=== PATIENT | male | born 1960 | race Caucasian/White ===

== ENCOUNTER 2017-03-25 10:02 | Inpatient (IN) | payer OTHER ==
--- NOTE | 2017-03-09 00:36 | HP ---
HISTORY AND PHYSICAL: DATE OF SURGERY/ADMISSION: 03/25/17 ATTENDING SURGEON: Roderick Vaughan MD * (DICTATED BY KERRY LOVE) PROCEDURE: Revision of right knee arthroplasty. CHIEF COMPLAINT: Right knee pain, instability HISTORY OF PRESENT ILLNESS: The patient is a very pleasant [id number] who presents today for history and physical prior to undergoing a revision of his right knee arthroplasty. The patient states that since recovering from right knee replacement in June 2015, he notes that his knee adriana and gives out with sliding from front to back direction. He has had increased pain and has elected to undergo a revision of his right total knee arthroplasty to correct this. PAST MEDICAL HISTORY: 1. History of depression. 2. History of bradycardia. PAST SURGICAL HISTORY: 1. Right knee scope x2. 2. Tonsillectomy. 3. Right knee replacement in June 2015. MEDICATIONS: 1. SAMe 400 mg 1 tablet p.o. daily. 2. Advil p.r.n. FAMILY HISTORY: Positive for heart disease and diabetes. Negative for cancer. SOCIAL HISTORY: The patient is and resides in [place]. 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 He has never smoked and rarely uses alcohol and exercises regularly. REVIEW OF SYSTEMS: General: Negative for fevers, chills, night sweats. No difficulty with anesthesia. HEENT: Negative for headache, lightheadedness or syncopal episodes. Integument: Negative for abrasions, lesions, open wounds or sores. Cardiothoracic: Negative for chest pain or edema. Negative for hypertension. Positive for asymptomatic bradycardia. Pulmonary: Negative for shortness of breath with exertion, chronic cough or COPD. GI: Negative for nausea, vomiting, constipation diarrhea or GERD. : Negative for urinary frequency and urgency. No history of UTIs or kidney disease. Musculoskeletal: Positive for right knee pain. Negative for back pain. Neuro: Negative for paresthesias. Positive for numbness of the great toe. No history of seizure, stroke or epilepsy. Endocrine: Negative for diabetes. Negative for thyroid disease. Hematologic: Negative for easy bruising, bleeding, anemia. No history of DVT or PE. Infectious Disease: Negative for MRSA, hepatitis C or HIV. PHYSICAL EXAMINATION GENERAL: Well appearing, in no acute distress. Alert and oriented 56-year-old male appearing younger than stated age. VITAL SIGNS: Height 68 inches, weight 185 pounds. Pulse 89, blood pressure 128 /74, respirations 18, temperature 98.0. BMI 28.1. HEENT: Normocephalic, atraumatic. EOMI. CARDIAC: Regular rate and rhythm. No murmurs, gallops or rubs. Normal S1 and S2. PULMONARY: Lungs clear to auscultation bilaterally. No crackles, rhonchi or wheezes. ABDOMEN: Soft, nontender, nondistended. Negative CVA tenderness bilaterally. NEUROLOGIC: Alert and oriented x3. Cranial nerves grossly intact. Sensation is intact to light touch in bilateral lower extremities. MUSCULOSKELETAL: Right knee in brace. Range of motion 0 to 130 degrees without difficulty. Negative Homans sign bilaterally. Posterior tibial pulses 2+ bilaterally. Sensation intact to light touch bilaterally. Full strength with extension and flexion of bilateral knees in comparison to opposite side studies. DIAGNOSTIC STUDIES: The patient underwent a chest x-ray, which was negative for any acute disease. The patient underwent x-rays of the right knee in September, which showed anatomic alignment of the prosthetic components and no radiologic evidence for loosening or fracture. ASSESSMENT: Right total knee arthroplasty with instability. PLAN: The patient has elected to undergo revision of his right total knee due to instability and increased with movement. Dr. Vaughan has reviewed the procedure with the patient who has no other questions or concerns today. He is unsure of which pain medication had worked for him in the past. If he had a reaction to one, he will call the office with this information. He was advised that he will be taking Coumadin postoperatively for approximately 1 month timeframe and he will call with any questions or concerns that he has in the future. KERRY LOVE [id number]/[facility] #: [id number] DANA
[~2017-03-25 10:02] MED LIST: Buffered Lidocaine 0.9% SYRIN* 5 ML/SYR SYRINGE INTRADERM ONE; DiMENhydriNATE IV* 50 MG/ML VIAL IV PUSH PRN; Famotidine IV* 10 MG/ML 2 ML (20 mg) IV ONE; Morphine INJ* 2 MG/ML 1 ML CARPUJECT IV PRN; PROCHLORPERAZINE INJ 5 MG/ML 2 ML VIAL IV PRN; Scopolamine 1.5 mg* PATCH TRANSDERM PRN; fentaNYL* 50 MCG/ML 2 ML VIAL (100 MCG VIAL) IV PRN; oxyCODONE/Acetamin 5/325 MG* TAB PO PRN
[2017-03-25] MEDS ORDERED: Famotidine IV* 10 MG/ML 2 ML (20 mg) ONE (10:50)
[2017-03-25] MEDS ORDERED: Clindamycin 900 MG IVPREMIX(* 900 MG/50 ML SDV IV ONE (10:50)
[2017-03-25] MEDS ORDERED: Buffered Lidocaine 0.9% SYRIN* 5 ML/SYR SYRINGE ONE (10:50)
[2017-03-25] MEDS ORDERED: fentaNYL* 50 MCG/ML 2 ML VIAL (100 MCG VIAL) ONE (11:16)
[2017-03-25] MEDS ORDERED: Midazolam* 1 MG/ML 10 ML VIAL (10 MG) ONE (11:17)
[2017-03-25] MEDS ORDERED: KETAMINE HCL* 50 MG/ML 10 ML VIAL ONE (11:17)
[2017-03-25] MEDS ORDERED: ceFAZolin 2 GM PREMIX (*) 2 GM/50 ML BAG IVPB ONE (11:34)
[2017-03-25] MEDS ORDERED: Bupivacaine 0.5% SDV PF* 30 ML VIAL ONE (11:58)
[2017-03-25] MEDS ORDERED: diPHENhydraMINE IV* 50 MG/ML 1 ml VIAL (BENADRYL) IV PRN ×2 (13:08→14:54)
[2017-03-25] MEDS ORDERED: PROCHLORPERAZINE INJ 5 MG/ML 2 ML VIAL IV PRN ×2 (13:08→14:54)
[2017-03-25] MEDS ORDERED: Ondansetron INJ* 2 MG/ML VIAL IV PRN ×2 (13:08→14:54)
[2017-03-25] MEDS ORDERED: Naloxone* 2 MG in NS 0.9% 250 ML* 250 ML IV PRN ×2 (13:08→14:54)
[2017-03-25] MEDS ORDERED: Nalbuphine* 20 MG/ML 1 ML VIAL IV PRN ×2 (13:08→14:54)
[2017-03-25] MEDS ORDERED: DiMENhydriNATE IV* 50 MG/ML VIAL IV PUSH PRN ×2 (13:08→14:54)
[2017-03-25] MEDS ORDERED: Ropivacaine 0.2% EPIDURAL* 200 MG/100 ML BAG EPIDURAL ONE (13:28)
[2017-03-25] MEDS ORDERED: Morphine PF AMP (0.5MG/ML)* 5 MG/10 ML AMP ONE (14:51)
[2017-03-25] MEDS ORDERED: Scopolamine 1.5 mg* PATCH TRANSDERM PRN (14:54)
[2017-03-25] MEDS ORDERED: oxyCODONE/Acetamin 5/325 MG* TAB PO PRN (14:54)
[2017-03-25] MEDS ORDERED: Naloxone* 0.4 MG/ML 1 ML VIAL IV PRN (14:54)
[2017-03-25] MEDS ORDERED: Bisacodyl SUPP* 10 MG SUPP PR PRN (15:03)
[2017-03-25] MEDS ORDERED: Polyethylene Glycol 3350* 17 GM PACKET PO PRN (15:03)
[2017-03-25] MEDS ORDERED: ALPRAZolam TAB* 0.5 MG PO PRN (15:08)
--- NOTE | 2017-03-25 16:02 | RAD ---
INDICATION: Postoperative right knee arthroplasty COMPARISON: October 01, 2016 TECHNIQUE: AP and lateral views were obtained. FINDINGS: There is right knee arthroplasty with revision. The prosthetic components appear well seated there are anterior skin marylou. A cooling jacket is in place.. IMPRESSION: RIGHT KNEE ARTHROPLASTY WITH REVISION.
[2017-03-25] MEDS: Ropivacaine 0.2% EPIDURAL* 200 MG/100 ML BAG EPIDURAL SCH (16:36)
[2017-03-25] MEDS ORDERED: Warfarin TAB(*) 10 MG PO ONE (17:00)
[2017-03-25] MEDS: D5W 1/2 NS 1000 ML BAG* 1,000 ML IV SCH (17:26)
[2017-03-25] MEDS ORDERED: Scopolamine 1.5 mg* PATCH ONE (17:55)
[2017-03-25] MEDS ORDERED: Ondansetron INJ* 2 MG/ML VIAL ONE (17:55)
[2017-03-25] MEDS: Docusate CAP* 100 MG PO SCH (20:23)
[2017-03-25] MEDS: Ferrous Sulfate TAB* 325 MG PO SCH (20:23)
[2017-03-25] MEDS: Magnesium Hydroxide LIQ* 30 ML UDC PO SCH (20:23)
[2017-03-25] MEDS: ceFAZolin 1 GM VIAL(*) 1 GM in D5W 50 ML BAG* 50 ML IVPB SCH (20:33)
[2017-03-26] MEDS: D5W 1/2 NS 1000 ML BAG* 1,000 ML IV SCH (01:41)
[2017-03-26] MEDS: Ropivacaine 0.2% EPIDURAL* 200 MG/100 ML BAG EPIDURAL SCH (02:10)
--- NOTE | 2017-03-26 04:06 | OP ---
DATE OF OPERATION: 03/25/17 - ROOM #342 DATE OF : 56 SURGEON: Roderick Vaughan MD ASSISTANTS: 1. Corine Bruner RPA 2. Nataliya Daugherty RPA ANESTHESIOLOGIST: Usman Ram MD ANESTHESIA: Epidural and sedation. PRE-OP DIAGNOSIS: Unstable right total knee arthroplasty. POST-OP DIAGNOSIS: Unstable right total knee arthroplasty. OPERATIVE PROCEDURE: Revision, right total knee. INDICATIONS: Mr. Camp is a 56-year-old male, who approximately 9 months ago underwent a right total knee arthroplasty in [place]. He has had continued troubles with it with very specific instability. His surgeon had told him he did not have a PCL, but yet put in a PCL-sparing knee replacement. He had very clear anterior to posterior instability as well as varus valgus instability as well. I discussed with him that revising the femoral component and possibly the tibial component depending on the integrity of his collateral ligaments should work well to restore his stability and get him moving. Risks of surgery such as infection, scar formation, stiffness, DVT, pulmonary embolism, and the need for revision surgery were some of the risks discussed. He had been declared medically optimized and wished to proceed. ESTIMATED BLOOD LOSS: 100 cc. COMPLICATIONS: None. HARDWARE: [employer], #6 femur with 10-mm CPS poly. DESCRIPTION OF PROCEDURE: The patient was brought to the OR, and epidural anesthesia was established. Tourniquet was placed over the proximal right thigh and would be used during the case. Tourniquet time would be 72 minutes. Right knee was prepped and then Alex catheter was placed. Corine Bruner and Nataliya Daugherty were present from the beginning of the case through the end and without an child development assistant the case would not have been possible to complete. They were there from prep to positioning, to approach, to removal of the femur, to placement of the femur and then closure. Right knee was prepped and draped. Incision was made using the old scar and carried down through skin and subcutaneous scar. Eventually, I found the plane by the top side of his quadriceps and used this to make a medial full-thickness flap. Medial parapatellar arthrotomy was then made and knee joint was opened. New synovium was forming and a little bit of clear joint fluid was present. Synovium was taken down from edges of the metal prosthesis, so that I could access to the bone metal interface. Similarly, I did thin out a little bit of the infrapatellar fat pad. However, I was very careful with doing this, shaving of layer by layer of scar, so that I could get access to the front of the tibial component to remove the tibial polyethylene. Eventually, I was able to clear around the polyethylene and polyethylene was removed. This gave better access to the knee, as then I could get better access about the femur. A small osteotome was then used to make a little wedge between the bone and cement/ metal interface so that eventually I could place a Gigli saw. Thin flexible osteotomes had been placed through and around from both medial and lateral aspects of the anterior aspect of the femur as well as from the inner side of the femur as well. With having gotten most of these through, Gigli saw was then pulled all the way down and it could be seen where I came most of the way down and around, even the weightbearing surface of the femur. Prosthesis was then loosening and I continued to work with the thin osteotomes and eventually femur came off rather atraumatically. It could be seen where I had a thin layer of bone and cement on the prosthesis and most of the bone was still intact on the distal femur. I still had cortex on the medial and lateral sides , anterior cortex, and only lost a little bit of the cancellous bone centrally on each of the condyles. I thought it would be acceptable to make this up with cement rather than resect more bone and use an LCCK femur. #6 femur was placed and I tried him with a 10 polyethylene spacer. He came out nicely and it could be seen where his stability was instantly improved. We also had the CPS and I used the CPS polyethylene and this also worked quite well. After placing the femur, a notch cut was made and then he was trialed with the polyethylene. His stability was excellent. Knee was copiously pulse lavaged. Cement was being prepared. A #6 was then cemented into place ,and excess cement was removed. Once the cement had hardened, knee was searched for additional cement and a few small pieces were found. Polyethylene was then snapped into place. He had excellent motion and stability and I believe he will be tremendously pleased with how much better than he feels. Knee was again copiously pulse lavaged. Parapatellar arthrotomy was repaired using interrupted #1 Vicryl sutures. The tourniquet was led down once the polyethylene had been snapped in. Subcutaneous tissues were reapproximated using 2-0 Vicryl. Skin was closed using marylou. Sterile dressing and a Cryo/Cuff were applied in the OR. The patient was awake even during the operation as he wanted to see the knee prosthesis once it was placed into the knee, but because of contamination issues , this was not attempted. He was awake and stable on transfer to the recovery room. [id number]/[facility] #: [id number] MTDD
[2017-03-26] MEDS: ceFAZolin 1 GM VIAL(*) 1 GM in D5W 50 ML BAG* 50 ML IVPB SCH ×2 (04:24→14:58)
[2017-03-26] MEDS ORDERED: HYDROcodone/ACETAMIN 5-325 MG* 1 TAB PO PRN ×3 (04:55→08:07)
[2017-03-26 05:04] LABS: Hematocrit 38 % (42-52); Hemoglobin 12.7 g/dl (14.0-18.0)
[2017-03-26 05:19] LABS: BUN/Creatinine Ratio 17.5 (8-20); Calcium 8.5 mg/dL (8.6-10.3); EGFR African American 102.2 (>60); EGFR Non-African American 79.5 (>60); Potassium 4.2 mmol/L (3.5-5.0)
[2017-03-26] MEDS ORDERED: HYDROcodone/ACETAMIN 5-325 MG* 1 TAB ONE (05:52)
[2017-03-26] MEDS ORDERED: Morphine INJ* 4 MG/ML 1 ML CARPUJECT IV PRN ×2 (06:00→08:13)
[2017-03-26] MEDS ORDERED: Ondansetron INJ* 2 MG/ML VIAL IV PRN (06:54)
[2017-03-26] MEDS ORDERED: Ondansetron TAB* 4 MG PO PRN (06:54)
[2017-03-26] MEDS ORDERED: diPHENhydraMINE IV* 50 MG/ML 1 ml VIAL (BENADRYL) IV PRN (06:54)
[2017-03-26] MEDS: Magnesium Hydroxide LIQ* 30 ML UDC PO SCH ×2 (07:43→19:31)
[2017-03-26] MEDS: Vitamin THERAPEUTIC TAB PO SCH (07:43)
[2017-03-26] MEDS: Ferrous Sulfate TAB* 325 MG PO SCH ×2 (07:43→19:31)
[2017-03-26] MEDS: Docusate CAP* 100 MG PO SCH ×2 (07:43→19:31)
[2017-03-26] MEDS ORDERED: oxyCODONE TAB* 5 MG TAB PO PRN (08:10)
--- NOTE | 2017-03-26 08:16 | PN ---
Progress Note - Progress Note Date of Service: 03/26/17 SOAP: Subjective: [] Patient seen at bedside. He feels well with no complaint of pain. He is pleased with the absence of swelling in his operative leg. No chest pain or SOB. He vomit last night, none today and no nausea Objective: [] Vital Signs Temp 97.6 F 03/26/17 07:23 Pulse 58 03/26/17 07:23 Resp 17 03/26/17 07:23 BP 112/68 03/26/17 07:23 Pulse Ox 96 03/26/17 07:23 Intake & Output 03/25/17 03/26/17 03/26/17 18:59 06:59 18:59 Intake Total 2450 3345 780 Output Total 750 1725 Balance 1700 1620 780 Weight 189 lb 6.4 oz Intake: IV Fluids 2050 1045 730 ABX - CEFAZOLIN 58 D5W 1/ NS 987 730 NS 50ML, Cefazolin 2G 50 lr 2000 IVPB 50 ABX - CEFAZOLIN 50 Oral 400 2300 Output: Urine 50 Alex 550 725 Emesis 950 Estimated Blood Loss 200 Other: # Bowel Movements 0 Laboratory Last Values Hgb 12.7 g/dl (14.0-18.0) L 03/26/17 04:55 Hct 38 % (42-52) L 03/26/17 04:55 INR (Anticoag Therapy) 1.01 (0.77-1.02) 03/26/17 04:55 Sodium 133 mmol/L (133-145) 03/26/17 04:55 Potassium 4.2 mmol/L (3.5-5.0) 03/26/17 04:55 Chloride 101 mmol/L (101-111) 03/26/17 04:55 Carbon Dioxide 27 mmol/L (22-32) 03/26/17 04:55 Anion Gap 5 mmol/L (2-11) 03/26/17 04:55 BUN 17 mg/dL (6-24) 03/26/17 04:55 Creatinine 0.97 mg/dL (0.67-1.17) 03/26/17 04:55 Est GFR ( Amer) 102.2 (>60) 03/26/17 04:55 Est GFR (Non-Af Amer) 79.5 (>60) 03/26/17 04:55 BUN/Creatinine Ratio 17.5 (8-20) 03/26/17 04:55 Glucose 160 mg/dL (70-100) H 03/26/17 04:55 Calcium 8.5 mg/dL (8.6-10.3) L 03/26/17 04:55 Blood Type A Positive 03/26/17 04:55 Antibody Screen Negative 03/26/17 04:55 General: Well appearing, no acute distress RLE: Dressing CDI, cryopack in place. BL LE: Calves supple and nontender without erythema, edema or palpable cords. Negative ghislaine's sign. DP/PT 2+. Sensation intact distally. DF/PF intact. Assessment: []POD 1 s/p revision Right femoral spacer component of prior Total knee arthroplasty 03/25/17 Dr Vaughan Plan: []WBAT PT/OT Heparin, coumadin 8 mg tonight Pain meds available: norco, oxycodone, morphine, cyclobenzaprine. Patient tolerates norco best. He is unsure of oxycodone or morphine but does not tolerate percocet First dressing change 03/27
--- NOTE | 2017-03-26 09:57 | PN ---
Progress Note - Progress Note Date of Service: 03/26/17 Note: Anesthesia duramorph follow up, doing well pain neumann, pt had N and V last PM, this has resolved. VSS, neuro OK, -ENCISO, s/p TKR, continue oral meds
[2017-03-26] MEDS: HYDROcodone/ACETAMIN 5-325 MG* 1 TAB PO PRN ×4 (10:18→22:11)
[2017-03-26] MEDS: Cyclobenzaprine TAB* 10 MG PO PRN ×2 (10:19→22:10)
[2017-03-26] MEDS ORDERED: Warfarin TAB(*) 4 MG PO ONE (17:00)
[2017-03-26] MEDS: Heparin VIAL(*) 5000 UNITS/ML VIAL (FIVE THOUSAND) SUBCUT SCH (22:14)
[2017-03-27] MEDS: HYDROcodone/ACETAMIN 5-325 MG* 1 TAB PO PRN ×3 (02:27→11:56)
[2017-03-27 05:32] LABS: Hematocrit 37 % (42-52); Hemoglobin 12.5 g/dl (14.0-18.0)
[2017-03-27] MEDS: Heparin VIAL(*) 5000 UNITS/ML VIAL (FIVE THOUSAND) SUBCUT SCH ×2 (06:09→13:24)
[2017-03-27] MEDS: Vitamin THERAPEUTIC TAB PO SCH (07:58)
[2017-03-27] MEDS: Docusate CAP* 100 MG PO SCH (07:58)
[2017-03-27] MEDS: Ferrous Sulfate TAB* 325 MG PO SCH (07:58)
[2017-03-27] MEDS: Magnesium Hydroxide LIQ* 30 ML UDC PO SCH ×2 (07:59→13:29)
--- NOTE | 2017-03-27 08:48 | PN ---
Progress Note - Progress Note Date of Service: 03/27/17 SOAP: Subjective: []Patient seen at bedside. His RLE is nonpainful at this time. Denies chest pain , shortness of breath, dizziness, nausea and leg numbness. He desires to go home today. Objective: [] Vital Signs Temp 98.0 F 03/27/17 07:19 Pulse 69 03/27/17 07:19 Resp 18 03/27/17 08:00 BP 124/70 03/27/17 07:19 Pulse Ox 95 03/27/17 08:00 Intake & Output 03/26/17 03/27/17 03/27/17 18:59 06:59 18:59 Intake Total 2555 1250 225 Output Total 1500 1850 400 Balance 1055 -600 -175 Intake: IV Fluids 1130 D5W 1/2 NS 1130 IVPB 50 ABX - CEFAZOLIN 50 Oral 1375 1250 225 Output: Urine 1500 1850 400 Laboratory Last Values Hgb 12.5 g/dl (14.0-18.0) L 03/27/17 05:04 Hct 37 % (42-52) L 03/27/17 05:04 INR (Anticoag Therapy) 1.17 (0.77-1.02) H 03/27/17 05:04 Sodium 133 mmol/L (133-145) 03/26/17 04:55 Potassium 4.2 mmol/L (3.5-5.0) 03/26/17 04:55 Chloride 101 mmol/L (101-111) 03/26/17 04:55 Carbon Dioxide 27 mmol/L (22-32) 03/26/17 04:55 Anion Gap 5 mmol/L (2-11) 03/26/17 04:55 BUN 17 mg/dL (6-24) 03/26/17 04:55 Creatinine 0.97 mg/dL (0.67-1.17) 03/26/17 04:55 Est GFR ( Amer) 102.2 (>60) 03/26/17 04:55 Est GFR (Non-Af Amer) 79.5 (>60) 03/26/17 04:55 BUN/Creatinine Ratio 17.5 (8-20) 03/26/17 04:55 Glucose 160 mg/dL (70-100) H 03/26/17 04:55 Calcium 8.5 mg/dL (8.6-10.3) L 03/26/17 04:55 Blood Type A Positive 03/26/17 04:55 Antibody Screen Negative 03/26/17 04:55 General: Well appearing, calm and cooperative in no acute distress. RLE: Incision CDI without surrounding erythema BL LE: calves supple and nontender without erythema, edema or palpable cords. Sensation intact distally. DF/PF intact. DP/PT pulses 2+/ Assessment: []POD 2 s/p revision Right femoral spacer component of prior Total knee arthroplasty 03/25/17 Dr Vaughan Plan: []WBAT PT/OT Heparin, coumadin 6 mg today DC home today
[2017-03-27 15:23] VITALS: BP 137/77
[2017-03-27] MEDS ORDERED: Warfarin TAB(*) 6 MG PO SCH (17:00)
--- NOTE | 2017-03-27 22:23 | DS ---
DISCHARGE SUMMARY: DATE OF ADMISSION: 03/25/17 DATE OF DISCHARGE: 03/27/17 DATE OF OPERATION: 03/25/17 SURGEON: Dr. Roderick Vaughan * (DICTATED BY KERRY MOORE) ASSISTANTS: KERRY Guadarrama and KERRY Moore PRE-OP DIAGNOSIS: Unstable right knee, status post right total knee arthroplasty. OPERATIVE PROCEDURE: Revision right total knee. HISTORY: Mr. Camp is a 56-year-old male who approximately 9 months ago underwent a right total knee arthroplasty. Ever since he has had continued troubles with its stability because of which he elected to undergo a revision surgery. HOSPITAL COURSE: The patient was admitted to [facility] on 03/25/17 and underwent a revision right total knee with no complications. The patient recovered briefly in the PACU and then was transferred to the short-stay surgical unit in stable condition. On postop day 1, hemoglobin 12.7, hematocrit 38, INR 1.01. On exam, he was well-appearing and in no acute distress. His dressing was clean , dry, and intact. His Cryo pack was in place. Bilateral lower extremities, the calves are supple, nontender. No erythema, edema, or palpable cords. He had negative Homans' sign. Dorsalis pedis and posterior tibial pulses were 2+. Sensation was intact distally. Dorsiflexion and plantar flexion intact. Both the epidural and Alex were discontinued and tolerated procedures well. On postop day 2, hemoglobin 12.5, hematocrit 37, INR 1.17. The patient is well- appearing, calm and cooperative, in no acute distress. Incision is clean, dry, and intact without surrounding erythema. Bilateral lower extremities, calves were supple, nontender without erythema, edema or palpable cords. Sensation was intact distally. Dorsiflexion and plantar flexion intact. Dorsalis pedis and posterior tibial pulses were 2+. His goals were met with Physical Therapy on day of discharge. His vitals, T-max of 99.3, pulse 62, respiratory rate 16, oxygen saturation 94, blood pressure 137/77. Throughout his stay, his vital signs did remain stable and he remained afebrile. The patient's pain was well controlled and found to be stable for discharge on postop day 2. DISCHARGE CONDITION: Stable. DISCHARGE MEDICATIONS: 1. SANDRA-e 400 mg tab 1 tab p.o. q.a.m. 2. Xanax 0.5 mg p.r.n. per instruction. 3. Docusate 100 mg p.o. b.i.d. p.r.n. 4. Warfarin 2 mg 1 to 3 tablets as directed per INR values. 5. Hydrocodone/acetaminophen 10/325 one half to one tab every 4 hours p.r.n., max daily dose of 6. DISCHARGE INSTRUCTIONS: Weightbearing as tolerated. The patient may shower after 03/28. No bathing, swimming, or submerging the wound. Call the Orthopedic office for increased drainage, redness, increased fever or increased pain. Go to the emergency room if shortness of breath or chest pain. Regular diet. If he has not had a bowel movement within 48 hours, please call our office, please continue to use stool softeners. Continue Physical Therapy and Occupational Therapy exercise as shown. The patient elects to do outpatient Physical Therapy and order was put in for Physical Therapy twice per week. The patient elects to do outpatient lab work and order was put in for INR draws on Saturday and to be faxed to Dr. Vaughan's office. He will take 6 mg of Coumadin today and outpatient lab will check his INR for further dosing instructions. KERRY MOORE [id number]/[facility] #: [id number] MTDRony
[2017-03-28] MEDS ORDERED: Scopolamine PATCH Remove* 1 NOTE MISC PATCH OFF ONE ×2 (05:48→13:09)
== END 2017-03-27 15:40 | disposition home or self-care (01) | DRG 302 ==
LOC: AA 10:02 → SSU 17:48
PROVIDERS: ADMIT Orthopaedic Surgery; ATTEND Orthopaedic Surgery
PROC: 0SRT0J9 Replacement of Right Knee Joint, Femoral Surface with Synthetic Substitute, Cemented, Open Approach (ICD-10-PCS; 2017-03-25)
PROC: 0SPT0JZ Removal of Synthetic Substitute from Right Knee Joint, Femoral Surface, Open Approach (ICD-10-PCS; principal; 2017-03-25 11:45)
DX: T84.022A Instability of internal right knee prosthesis, initial encounter (principal); F32.9 Major depressive disorder, single episode, unspecified; Y79.2 Prosthetic and other implants, materials and accessory orthopedic devices associated with adverse incidents; F41.9 Anxiety disorder, unspecified; Y92.009 Unspecified place in unspecified non-institutional (private) residence as the place of occurrence of the external cause; Z72.89 Other problems related to lifestyle; Z83.3 Family history of diabetes mellitus; Z82.49 Family history of ischemic heart disease and other diseases of the circulatory system
CPT/HCPCS: 36415; 80048; 85014; 85018; 85610; 86850; 86900; 86901; 88300; A9270-GY; J0690; J1644; J2250; J2405; J2795; J3010

== ENCOUNTER 2017-05-27 08:37 | Inpatient (IN) | payer OTHER ==
[~2017-05-27 08:37] MED LIST changes: +Acetaminophen IV 1GM/100ML * 1,000 MG/100 ML VIAL IVPB ONE; -DiMENhydriNATE IV* 50 MG/ML VIAL IV PUSH PRN; +Gabapentin CAP(*) 300 MG PO ONE; +Metoclopramide TAB* 10 MG PO ONE; -Morphine INJ* 2 MG/ML 1 ML CARPUJECT IV PRN; -PROCHLORPERAZINE INJ 5 MG/ML 2 ML VIAL IV PRN; -Scopolamine 1.5 mg* PATCH TRANSDERM PRN; -fentaNYL* 50 MCG/ML 2 ML VIAL (100 MCG VIAL) IV PRN; -oxyCODONE/Acetamin 5/325 MG* TAB PO PRN
[2017-05-27] MEDS ORDERED: Acetaminophen IV 1GM/100ML * 100 ML ONE (08:52)
[2017-05-27] MEDS ORDERED: oxyCODONE SR TAB(*) 10 MG TAB.SR ONE (08:52)
[2017-05-27] MEDS ORDERED: Famotidine IV* 10 MG/ML 2 ML (20 mg) ONE (08:52)
[2017-05-27] MEDS ORDERED: Clindamycin 900 MG IVPREMIX(* 900 MG/50 ML SDV IV ONE (08:53)
[2017-05-27] MEDS ORDERED: Gabapentin CAP(*) 300 MG ONE (08:53)
[2017-05-27] MEDS ORDERED: Buffered Lidocaine 0.9% SYRIN* 5 ML/SYR SYRINGE ONE (08:53)
[2017-05-27] MEDS ORDERED: Metoclopramide TAB* 10 MG ONE (08:53)
[2017-05-27] MEDS ORDERED: Propofol* 10 MG/ML 20 ML BTL IV PUSH ONE ×2 (08:55→15:17)
[2017-05-27] MEDS ORDERED: Lidocaine 2% PF * 5 ML VIAL ONE (08:55)
[2017-05-27] MEDS ORDERED: Dexamethasone IV* 4 MG/ML 1 ML (4 MG) ONE (08:55)
[2017-05-27] MEDS ORDERED: Ondansetron INJ* 2 MG/ML VIAL ONE (08:55)
[2017-05-27] MEDS ORDERED: Midazolam* 1 MG/ML 10 ML VIAL (10 MG) ONE (08:56)
[2017-05-27] MEDS ORDERED: KETAMINE HCL* 50 MG/ML 10 ML VIAL ONE (08:56)
[2017-05-27] MEDS ORDERED: fentaNYL* 50 MCG/ML 2 ML VIAL (100 MCG VIAL) ONE (08:56)
[2017-05-27] MEDS ORDERED: oxyCODONE SR TAB(*) 10 MG TAB.SR PO ONE (09:00)
[2017-05-27 09:28] LABS: ABS Basophils 0.1 10^3/ul (0-0.2); ABS Eosinophils 0.2 10^3/ul (0-0.6); ABS Lymphocytes 1.7 10^3/ul (1.0-4.8); ABS Monocytes 0.8 10^3/ul (0-0.8); ABS Neutrophils 3.5 10^3/ul (1.5-7.7); ABS Nucleated RBC 0 10^3/ul; Eosinophil % 3.4 % (0-6); Hematocrit 43 % (42-52); Hemoglobin 14.3 g/dl (14.0-18.0); Lymphocyte % 27.5 % (25-47); Mean Corpuscular HGB Conc 33 g/dl (31-36); Mean Corpuscular Hemoglobin 30 pg (27-31); Mean Corpuscular Volume 89 fL (80-94); Mean Platelet Volume 8 um3 (7.4-10.4); Nucleated Red Blood Cells % 0; Platelet Count 227 10^3/ul (150-450); Red Blood Count 4.85 10^6/ul (4.0-5.4); Red Cell Distribution Width 14 % (10.5-15); White Blood Count 6.3 10^3/ul (3.5-10.8)
[2017-05-27] MEDS ORDERED: Bupivacaine 0.5% SDV PF* 10-30ML VIAL ONE (09:31)
[2017-05-27 09:42] LABS: EGFR Non-African American 79.5 (>60)
[2017-05-27] MEDS ORDERED: ceFAZolin 2 GM PREMIX (*) 2 GM/50 ML BAG IVPB ONE ×2 (09:59→14:58)
[2017-05-27] MEDS ORDERED: Ondansetron INJ* 2 MG/ML VIAL IV PRN (11:58)
[2017-05-27] MEDS ORDERED: fentaNYL* 50 MCG/ML 2 ML VIAL (100 MCG VIAL) IV PRN (11:58)
[2017-05-27] MEDS ORDERED: Naloxone* 0.4 MG/ML 1 ML VIAL IV PRN (11:58)
[2017-05-27] MEDS ORDERED: EPHEDrine (Pressors)* 50 MG/ML VIAL IV PUSH PRN (12:03)
[2017-05-27] MEDS ORDERED: Ropivacaine* 300 MG in NS 0.9% 250 ML* 240 ML EPIDURAL SCH (13:00)
[2017-05-27] MEDS ORDERED: Polyethylene Glycol 3350* 17 GM PACKET PO PRN (15:45)
[2017-05-27] MEDS ORDERED: Acetaminophen TAB* 325 MG PO PRN (15:45)
--- NOTE | 2017-05-27 18:06 | RAD ---
HISTORY: Status post right knee arthroplasty revision COMPARISONS: March 25, 2017 VIEWS: 3, Frontal and lateral views of the right knee FINDINGS: BONE DENSITY: Normal. BONES: The patient is status post right knee arthroplasty. There is no hardware failure or osteolysis. JOINTS: The patient is status post right knee arthroplasty. ALIGNMENT: There is no dislocation. SOFT TISSUES: Unremarkable. OTHER FINDINGS: None. IMPRESSION: SUSPICIOUS RIGHT KNEE ARTHROPLASTY
[2017-05-27] MEDS: D5W 1/2 NS 1000 ML BAG* 1,000 ML IV SCH (20:13)
[2017-05-27] MEDS: ceFAZolin 1 GM in Dextrose (*) 1 GM/50 ML BAG IVPB SCH (21:10)
[2017-05-27] MEDS: Docusate CAP* 100 MG PO SCH (21:11)
[2017-05-27] MEDS: Ferrous Sulfate TAB* 325 MG PO SCH (21:11)
[2017-05-27] MEDS: Magnesium Hydroxide LIQ* 30 ML UDC PO SCH (21:13)
[2017-05-27] MEDS ORDERED: oxyCODONE/Acetamin 5/325 MG* TAB ONE (22:47)
[2017-05-27] MEDS ORDERED: oxyCODONE/Acetamin 5/325 MG* TAB PO PRN (23:00)
[2017-05-27] MEDS ORDERED: oxyCODONE TAB* 5 MG TAB PO PRN (23:00)
[2017-05-27] MEDS: HYDROcodone/ACETAMIN 5-325 MG* 1 TAB PO PRN (23:30)
[2017-05-27] MEDS: Morphine INJ* 10 MG/ML 1 ML CARPUJECT IV PRN (23:31)
[2017-05-28] MEDS: HYDROcodone/ACETAMIN 5-325 MG* 1 TAB PO PRN ×5 (02:39→20:46)
[2017-05-28] MEDS: D5W 1/2 NS 1000 ML BAG* 1,000 ML IV SCH (04:42)
[2017-05-28] MEDS: ceFAZolin 1 GM in Dextrose (*) 1 GM/50 ML BAG IVPB SCH ×2 (04:45→14:08)
[2017-05-28 05:20] LABS: Hematocrit 32 % (42-52); Hemoglobin 10.9 g/dl (14.0-18.0); Mean Platelet Volume 8 um3 (7.4-10.4); Platelet Count 197 10^3/ul (150-450)
[2017-05-28 05:28] LABS: EGFR Non-African American 79.5 (>60)
[2017-05-28] MEDS ORDERED: diPHENhydraMINE IV* 50 MG/ML 1 ml VIAL (BENADRYL) IV PRN (06:00)
[2017-05-28] MEDS ORDERED: Ondansetron INJ* 2 MG/ML VIAL IV PRN (06:00)
[2017-05-28] MEDS ORDERED: Ondansetron TAB* 4 MG PO PRN (06:00)
[2017-05-28] MEDS ORDERED: diPHENhydraMINE PO* 25 MG PO PRN (06:00)
[2017-05-28] MEDS: Morphine INJ* 10 MG/ML 1 ML CARPUJECT IV PRN ×2 (08:01→15:12)
[2017-05-28] MEDS: Vitamin THERAPEUTIC TAB PO SCH (09:32)
[2017-05-28] MEDS: Docusate CAP* 100 MG PO SCH ×2 (09:32→20:45)
[2017-05-28] MEDS: Ferrous Sulfate TAB* 325 MG PO SCH ×2 (09:32→20:45)
[2017-05-28] MEDS: Magnesium Hydroxide LIQ* 30 ML UDC PO SCH (09:33)
[2017-05-28] MEDS ORDERED: HYDROcodone/ACETAMIN 5-325 MG* 1 TAB PO PRN (10:59)
[2017-05-28] MEDS ORDERED: Magnesium Hydroxide LIQ* 30 ML UDC PO PRN (11:00)
--- NOTE | 2017-05-28 12:48 | PN ---
Progress Note - Progress Note Date of Service: 05/28/17 SOAP: Subjective: [] Patient seen at bedside. He feels well and reports well controlled pain. Denies CP, SOB, dizziness, nausea. Has residual numbness of right great toe and medial foot s/p first right total knee done at another facility last year. No change in numbness or tingling. Objective: []General: Well appearing, NAD RLE: Dressing CDI without surrounding erythema. DF/PF intact. Sensation intact distally aside from decreased sensation (consistent with above noted ) of right great toe. DP2+. BL LE: Calves supple and nontender without erythema, edema or palpable cords. Vital Signs Temp 98.5 F 05/28/17 11:36 Pulse 64 05/28/17 11:36 Resp 16 05/28/17 11:49 BP 131/63 05/28/17 11:36 Pulse Ox 96 05/28/17 11:36 Intake & Output 05/27/17 05/28/17 05/28/17 18:59 06:59 18:59 Intake Total 4700 2345 200 Output Total 1800 3600 750 Balance 2900 -1255 -550 Weight 189 lb Intake: IV Fluids 4700 1045 ABX - CEFAZOLIN 55 D5W 1/2 NS 990 LR 4600 NS 50ML, Cefazolin 2G 100 Oral 1300 200 Output: Urine 350 750 Alex 1000 3250 Estimated Blood Loss 800 Laboratory Last Values WBC 6.3 10^3/ul (3.5-10.8) 05/27/17 09:12 RBC 4.85 10^6/ul (4.0-5.4) 05/27/17 09:12 Hgb 10.9 g/dl (14.0-18.0) L 05/28/17 05:01 Hct 32 % (42-52) L 05/28/17 05:01 MCV 89 fL (80-94) 05/27/17 09:12 MCH 30 pg (27-31) 05/27/17 09:12 MCHC 33 g/dl (31-36) 05/27/17 09:12 RDW 14 % (10.5-15) 05/27/17 09:12 Plt Count 197 10^3/ul (150-450) 05/28/17 05:01 MPV 8 um3 (7.4-10.4) 05/28/17 05:01 Neut % (Auto) 55.8 % (38-83) 05/27/17 09:12 Lymph % (Auto) 27.5 % (25-47) 05/27/17 09:12 Finney % (Auto) 12.1 % (1-9) H 05/27/17 09:12 Eos % (Auto) 3.4 % (0-6) 05/27/17 09:12 Baso % (Auto) 1.2 % (0-2) 05/27/17 09:12 Absolute Neuts (auto) 3.5 10^3/ul (1.5-7.7) 05/27/17 09:12 Absolute Lymphs (auto) 1.7 10^3/ul (1.0-4.8) 05/27/17 09:12 Absolute Monos (auto) 0.8 10^3/ul (0-0.8) 05/27/17 09:12 Absolute Eos (auto) 0.2 10^3/ul (0-0.6) 05/27/17 09:12 Absolute Basos (auto) 0.1 10^3/ul (0-0.2) 05/27/17 09:12 Absolute Nucleated RBC 0 10^3/ul 05/27/17 09:12 Nucleated RBC % 0 05/27/17 09:12 Sodium 131 mmol/L (133-145) L 05/28/17 05:01 Potassium 4.0 mmol/L (3.5-5.0) 05/28/17 05:01 Chloride 101 mmol/L (101-111) 05/28/17 05:01 Carbon Dioxide 25 mmol/L (22-32) 05/28/17 05:01 Anion Gap 5 mmol/L (2-11) 05/28/17 05:01 BUN 13 mg/dL (6-24) 05/28/17 05:01 Creatinine 0.97 mg/dL (0.67-1.17) 05/28/17 05:01 Est GFR ( Amer) 102.2 (>60) 05/28/17 05:01 Est GFR (Non-Af Amer) 79.5 (>60) 05/28/17 05:01 BUN/Creatinine Ratio 13.4 (8-20) 05/28/17 05:01 Glucose 208 mg/dL (70-100) H 05/28/17 05:01 Calcium 8.5 mg/dL (8.6-10.3) L 05/28/17 05:01 Assessment: []POD 1 s/p right total knee revision 05/27/17 Dr Vaughan Plan: []WBAT PT/OT Heparin today. Lovenox thereafter while in house. Then DC on xeralto or eliquis per insurance coverage
--- NOTE | 2017-05-28 13:19 | OP ---
DATE OF OPERATION: 05/27/17 - ROOM #[id number] DATE OF : 56 SURGEON: Roderick Vaughan MD RIGHT OF WAY MANAGER: KERRY Rivera. SECOND RIGHT OF WAY MANAGER: ANESTHESIOLOGIST: Alberto Rogers MD ANESTHESIA: Spinal and sedation. PRE-OP DIAGNOSIS: Unstable/failed right total knee arthroplasty. POST-OP DIAGNOSIS: Unstable/failed right total knee arthroplasty. OPERATIVE PROCEDURE: Revision right total knee arthroplasty. ESTIMATED BLOOD LOSS: 800 cc. COMPLICATIONS: None. HARDWARE: Yordy LCCK E femur with 10 mm distal augments and 5 mm posterior augments both medial and lateral along with a stem extension 17 x 100. Tibia components were G with a 13 x 10 cm stem extension, 14 mm LCCK poly. SUMMARY: Mr. Camp is a 56-year-old male who had originally undergone a right total knee arthroplasty elsewhere. He was grossly unstable when he presented to the office and I discussed with him that a revision should work well to decrease his pain and improve his function. He underwent a revision of his femoral component from a PCL-sparing implant to a posterior substituting implant and that initially had worked well for him. For 3 weeks, he had been progressing and was pleased as he had been walking and had significant improvement in his knee and was doing essentially all activities. After about 3 weeks, he woke up on Saturday morning and had pain and swelling in the knee. Initially it was more the swelling which had limited him as well as pain with first starting weightbearing. The more weightbearing he did, the better the knee would slowly get. This has, however, continued. He initially was instructed to rest the knee for a week and that did not help and then the knee was tapped and fluid was sent for culture and sensitivity, cell count as well as having CRP and sed rate done. None of these were suspicious at all for an infection. Rather, considering the mechanism of how he had pain with beginning weightbearing and then with the more pressure he put on the leg it felt better, I was very suspicious that one of the components had loosened. The femur was irregular because I had used some cement to make up for the some of the bone loss as augments were only possible with the LCCK implants and if we used the LCCK implant I needed to revise his tibia as well. Therefore, I had revised him to a Persona component which was similar to an LCCK but had a larger post and this had given him very good stability. Unfortunately even though it is designed for these implants, I believe he probably had put too much stress on the femur and the tibia and discussed with him that they were probably loose. I discussed with him the revision of his knee and I discussed with him that if the femur was loose, we will probably need to do a stem component and if the tibia was loose we would similarly need to a stem component. The issue though was that with the stem components, the other component would also need to be changed. Risks of surgery such as infections, scar, inflammation, stiffness, DVT, pulmonary embolism, hardware failure and continued pain were some of the risks discussed. He had wished to proceed. DESCRIPTION OF PROCEDURE: The patient was brought to the OR and spinal anesthesia was introduced. Alex catheter was placed. Tourniquet was used for the beginning of the case and was dropped at 75 minutes. The case, however, did continue. Left knee was prepped and then draped. Esmarch was used to exsanguinate the leg and the tourniquet was raised. Midline incision was made using the old scar. Incision was carried down through skin and subcutaneous scar and dissection was a little bit difficult because of the tissue. Extensor mechanism, however, was eventually exposed and a sharp parapatellar arthrotomy was made. Thin blood tinge fluid was present. Typical thickening of the quadriceps and patella were also present. Sharp dissection was carried out laterally to help with exposure and I extended his quadriceps incision just a little bit and this took a lot of tension off of the patella. I was a little bit surprised to see with stressing the knee in to varus and valgus where I had felt him to be unstable it did not appear that the components were grossly loose , instead they seemed well-seated and I could not see any motion at all. Polyethylene was then snapped out and once again I put a clamp on the femur and tried to backslap and it did not move at all. Similarly, I impacted it again and backslapped and there was no motion that I could see. Tibia was very similar as well. He was then trialed with the PS implants and he has some very specific play, which reminded me why I had put in the stabilized component. The stabilized component, however, had some odd wear right along the front and underside where it appeared that the plastic had been deformed. I thought perhaps that this may have been the issue and we would just do a polyethylene exchange. I wanted to see how that polyethylene hit and what the issue was and reinserted that polyethylene. With rotating the leg, it could be seen I had micromotion with the femur where there was just a little bit of play back and forth between the cements on the femoral components and the distal femur. Similarly with trying to rotate, I could get some fluid extruded from under the tibia, so I thought I had micromotion there as well. The decision was made to remove both components. Adarsh giordano osteotomes were used on both components to try and break the cement and this was rather difficult. This took most of the time under tourniquet to break the cement and have first the femur removed and I had broken most of the cement around the tibia and shortly after the tourniquet was let down I was able to finish the tibial component as well. I had not lost a great amount of bone but did lose a little bit more where perhaps I had lost 5 mm the first time and I believe I lost probably another 5 mm this time. I thought therefore the 10 mm augments would fit well. E femur sat nicely and drill was used to open the femoral canal and then reamers were progressively run until I had a nice snug fit. E was then fit on the top side of a 17 stem and the 10 mm augment cuts for distal and 5 mm on posterior were cut as these seemed to fit best. This allowed the femoral component to sit nicely on his bone. Attention was turned to the tibia. Drill was used to open the canal and break a little of the cement distally. More cement was then removed. Beginning with the 10 reamer, it was reamed and at 13 I had a snug fit. Tibial trial was then impacted into place and he was trialed with a different plastic to see what fit best. Once again with just the LP trial, he had some very specific play to varus and valgus stress and with increasing the size of the trial polyethylene, I could get rid of that in extension but if I flexed him a little bit he had some very specific play in to varus and valgus. I believe this also had led to the issues he had with the components. He was trialed with a 12 and 14 of the LCCK as well and I thought these perhaps fit better. Trial instrumentation was then removed. Box cut was finished using the box cutting guide. Knee was copiously pulse lavaged. A total of 9 L would be used through the case. Instruments were assembled on the back table and cement was then mixed. Tibia followed by femur were cemented into place and cement was allowed to harden. He was again trialed with various sizes of trial polyethylene including 12 and 14 as well as 12 and 14 LCCK. With just the 12, there appeared to be a little play in full extension. Therefore I selected the 14 to take some of the varus and valgus stress off of the post and make the joint space a little more snug. He still came out nicely into full extension and flexed quite well. A 12 polyethylene was then snapped into place and then the screw was then placed and snugged down using the torque wrench. Knee was again copiously pulse lavaged. Parapatellar arthrotomy was repaired using interrupted #1 Vicryl sutures. Subcutaneous tissues were approximated with 2-0 Vicryl, skin was closed using marylou. Sterile dressing and Cryo/Cuff were applied in the OR. The patient was then awakened and stable on transfer to the recovery room. [id number]/[facility] #: [id number] DANA
[2017-05-28] MEDS: Heparin VIAL(*) 5000 UNITS/ML VIAL (FIVE THOUSAND) SUBCUT SCH (16:21)
[2017-05-29] MEDS: Heparin VIAL(*) 5000 UNITS/ML VIAL (FIVE THOUSAND) SUBCUT SCH (00:39)
[2017-05-29] MEDS: HYDROcodone/ACETAMIN 5-325 MG* 1 TAB PO PRN ×4 (00:45→14:18)
[2017-05-29 06:43] LABS: Hematocrit 29 % (42-52); Hemoglobin 10.1 g/dl (14.0-18.0); Mean Platelet Volume 8 um3 (7.4-10.4); Platelet Count 171 10^3/ul (150-450)
--- NOTE | 2017-05-29 07:12 | PN ---
Progress Note - Progress Note Date of Service: 05/29/17 SOAP: Subjective: 56 yo male, POD#2 S/P revision right TKA, both fem and tibial components to constrained replacement. Did well yesterday and reports slept well overnight. Had some spasms-like complaints down the outer side of the right calf, very similar to previous sensations like that which began after his first surgery. Walked yesterday suzy and that hasn't been back. [place]nn PO well, no BM, but + flatus. Objective: VSS- aebrile. H/H: 10.05/20 Right knee- wound benign, not particularly swollen. No drainage, no erythema. Can flex up some with dressing change. Assessment: Stable Plan: Cont OOB/PT/care. Will add flexeril for spasm type sx if they return. Expect d/c tomorrow.
[2017-05-29] MEDS ORDERED: Cyclobenzaprine TAB* 10 MG PO PRN (07:13)
[2017-05-29] MEDS: Ferrous Sulfate TAB* 325 MG PO SCH (08:55)
[2017-05-29] MEDS: Docusate CAP* 100 MG PO SCH (08:55)
[2017-05-29] MEDS: Vitamin THERAPEUTIC TAB PO SCH (08:55)
[2017-05-29 12:59] VITALS: BP 121/61
[2017-05-29] MEDS ORDERED: Enoxaparin(*) 40 MG/0.4 ML SYR SUBCUT SCH (15:30)
--- NOTE | 2017-05-30 03:31 | DS ---
DISCHARGE SUMMARY: DATE OF ADMISSION: 05/27/17 DATE OF DISCHARGE: 05/29/17 DATE OF OPERATION: 05/27/17 SURGEON: Dr. Roderick Vaughan.* (DICTATED BY KERRY MOORE) COMPRESSOR STATION CHIEF ENGINEER: KERRY Tello PRE-OP DIAGNOSIS: Unstable failed right total knee arthroplasty. OPERATIVE PROCEDURE: Revision, right total knee arthroplasty. HISTORY: Mr. Camp is a 56-year-old male, who had originally undergone a right total knee arthroplasty elsewhere. He was grossly unstable and presented to the office and it was discussed with him that a revision should work well to decrease his pain and improve his function. He underwent a revision on the femoral component from the PCL sparing implant to posterior substituting implant and that had initially worked well for him. After about 3 weeks, he woke up having pain and swelling in the knee and suspicion that one of the components have loosened. It was decided that the patient would have a revision of his right total knee. HOSPITAL COURSE: Mr. Camp underwent a revision of his right total knee arthroplasty on 05/27/17 at [facility] by Dr. Roderick Vaughan without complications. The patient was brought to the PACU in stable condition where he recovered briefly and then went to the short stay surgical unit again in stable condition. On postop day 1, the patient was seen at bedside, he was feeling well with well-controlled pain. He denied chest pain, shortness of breath, dizziness, or nausea. He continued to have residual numbness ever since his first surgery of the right great toe and medial aspect of the foot. He has no change in his numbness or tingling. Dressing was clean, dry, and intact without any surrounding erythema. Dorsiflexion and plantar flexion intact. Sensation is intact distally aside from decreased sensation which is consistent with numbness felt prior to the surgery. Dorsalis pedis pulse 2+. Calf supple, nontender without erythema or edema or palpable cords. Hemoglobin 10.1, hematocrit 32. Day #1 heparin was used for DVT prophylaxis. Postop day #2, the patient was seen at bedside by Dr. Vaughan. H and H was 10.1 and 29. Right knee, the wound was benign, not particularly swollen. No drainage or erythema. The patient was able to flex some with dressing change. He will use Lovenox today for DVT prophylaxis. Vital Signs: Temperature 98.1, pulse rate 71, respiratory rate 16, oxygen saturation 95%, blood pressure 121/68. The patient desires discharge home. He is orthopedically and medically stable for discharge. MEDICATIONS: 1. Resume SANDRA-e 400 mg 1 tab p.o. q.a.m. 2. Resume Xanax 0.5 mg tablets p.o. p.r.n. per instructions. New medications include: 1. Acetaminophen 650 mg p.o. q.4 hours p.r.n. max daily dose of 4000 mg from all sources. 2. Eliquis 2.5 mg p.o. b.i.d. for 21 days. 3. Hydrocodone/acetaminophen 5/325 mg 1 to 2 tabs every 4 to 6 hours as needed , max daily dose of 10. 4. Docusate 100 mg p.o. b.i.d. p.r.n. DISCHARGE PLAN: The patient is weightbearing as tolerated. It is okay to shower after 05/30/17. No bathing, swimming, or submerging the wound. Call the orthopedic office for increased drainage, redness, increased pain or fever. Go to the emergency room if shortness of breath or chest pain. Regular diet. Continue to use stool softeners. Call the office if no bowel motion within 48 hours. Continue Physical Therapy and Occupational Therapy, exercises as shown. Visiting home nursing was denied by the patient. He is to attend physical therapy at [facility]. Pain control with [place] 5/325 one to two tabs every 4 to 6 hours as needed for pain. Follow up with Dr. Vaughan in 10 to 12 days for staple removal as the patient will not be having home nurse visits. Call for an appointment. KERRY MOORE [id number]/[facility] #: [id number] DANA
== END 2017-05-29 14:35 | disposition home or self-care (01) | DRG 302 ==
LOC: AA 08:37 → SSU 15:45
PROVIDERS: ADMIT Orthopaedic Surgery; ATTEND Orthopaedic Surgery
PROC: 0SRC0J9 Replacement of Right Knee Joint with Synthetic Substitute, Cemented, Open Approach (ICD-10-PCS; 2017-05-27)
PROC: 0SPC0JZ Removal of Synthetic Substitute from Right Knee Joint, Open Approach (ICD-10-PCS; principal; 2017-05-27 10:00)
DX: T84.022A Instability of internal right knee prosthesis, initial encounter (principal); F32.9 Major depressive disorder, single episode, unspecified; R20.0 Anesthesia of skin; M62.831 Muscle spasm of calf; Y79.2 Prosthetic and other implants, materials and accessory orthopedic devices associated with adverse incidents; Y92.9 Unspecified place or not applicable; Z88.0 Allergy status to penicillin; Z88.1 Allergy status to other antibiotic agents; Z88.6 Allergy status to analgesic agent; Z88.8 Allergy status to other drugs, medicaments and biological substances; Z82.49 Family history of ischemic heart disease and other diseases of the circulatory system; Z83.3 Family history of diabetes mellitus
CPT/HCPCS: 36415; 80048; 82947; 84300; 85014; 85018; 85025; 85049; 88300; A9270-GY; C1776; J0690; J1100; J1644; J2250; J2270; J2405; J2704; J2795; J3010